=== PATIENT | female | born 1995 | race African-American/Black ===

== ENCOUNTER 2023-04-13 20:55 | Outpatient (CLI) | payer OTHER, SELFPAY ==
--- NOTE | 2023-04-13 21:23 | PC.NURSE ---
pt presents to L&D with complaints of a high blood pressure at home. pt states her pressure at home on an automatic cuff was 188/100. pt denies any history of high blood pressure, pt denies any headache, dizziness, blurred vision, seeing spots, right upper abdominal pain or any other symptoms associated with pre eclampsia. No edema noted on hands, calves, ankles, or feet bilaterally. pt states her mother checked her blood pressure because she felt like she looked extra swollen today . pt denies any vaginal bleeding, leaking of fluid, and has positive movement. pt denies any complications or complaints other than the one high blood pressure check she had at home.
[2023-04-13 21:26] VITALS: BP 104/64; PULSE 93
[2023-04-13 21:38] VITALS: BP 99/62; PULSE 89
== END 2023-04-13 21:40 | disposition home or self-care (01) ==
LOC: ANHOBOP 21:08 → ANHLDR 05-04 06:20
PROVIDERS: PCP Obstetrics & Gynecology; Visit Provider Obstetrics & Gynecology
DX: O13.9 Gestational [pregnancy-induced] hypertension without significant proteinuria, unspecified trimester (principal); Z3A.00 Weeks of gestation of pregnancy not specified
CPT/HCPCS: 59025; 99199

== ENCOUNTER 2023-05-10 18:46 | Inpatient (IN) | payer OTHER, SELFPAY ==
[2023-05-10] VITALS (55 sets, daily range): BP systolic 48–193; BP diastolic 31–150; PULSE 73–295; TEMP 36.3; O2SAT 99–100; BMI 31.3
--- NOTE | 2023-05-10 18:46 | LDADM ---
This patient, Ariane Graham, was admitted to Labor/Delivery/Recovery 104 on 05/10/23 at 18:46. Plans for labor, pain management and were discussed with patient. Patient/family oriented to hospital policies and general routines including ID bracelet, bed and alarms, visiting hours, pain management, procedures, bathroom and other care routines, personal items, smoking policy, room service/diet and guest tray routines, security routines, and visiting hours. Patient/Family are encouraged to report perceived risks to care and to ask questions if they do not understand what they are told or what they should do. See OBIX for further documentation.
--- NOTE | 2023-05-10 19:15 | P.PNAN_ITS ---
Anes - Eval Pre Procedure Procedure: labor epidural Date/Time: 05/10/23 19:15 Surgeon: melly Preop Diagnosis: pain during labor Pre Op Diagnosis: Contractions Patient Data Age: 27 Gender: F Height: Weight: Patient hx anesthesia problems: none Family hx anesthesia problems: none Results Review: All pre-operative results and documents have been reviewed as part of the pre- operative evaluation. Exam Day of Procedure 05/10/23 19:15
[2023-05-10] MEDS: LACTATED RINGERS 1,000 ML 125 ML IV CONT (19:20)
[2023-05-10] MEDS: ONDANSETRON INJ 4 MG/2 ML VIAL IV PUSH (19:28)
[2023-05-10] MEDS: AMPICILLIN 2 GM/NS 100 ML 2 GM/100 ML BAG IVPB (19:29)
[2023-05-10 19:33] LABS: Basophils Percent Auto 0.2 % (0.2-1.2); Eosinophils Absolute Auto 0.1 K/mm3 (0-0.3); Eosinophils Percent Auto 1.1 % (0-4.4); Hemoglobin 13.8 g/dL (12.0-15.0); Immature Granulocyte Absolute 0.06 K/mm3 (0.00-0.031); Immature Granulocyte Percent A 0.5 % (0-0.5); Lymphocytes Absolute Auto 1.98 K/mm3 (0.9-3.2); Lymphocytes Percent Auto 17.3 % (18.3-44.2); Mean Corpuscular HGB Conc 32.1 g/dl (32-36); Mean Corpuscular Hemoglobin 26.1 pg (26-34); Mean Corpuscular Volume 81.4 fl (80-100); Mean Platelet Volume 9.8 fl (7.4-10.4); Monocytes Absolute Auto 0.9 K/mm3 (0.1-0.6); Monocytes Percent Auto 7.8 % (2.6-8.5); Neutrophils Absolute Auto 8.3 K/mm3 (1.3-6.7); Neutrophils Percent Auto 73.1 % (45.5-73.1); Platelet Count Result 264 k/mm3 (150-375); Red Blood Count 5.28 M/mm3 (4.2-5.4); Red Cell Distribution Width 24.6 % (11.5-14.5); White Blood Count 11.4 K/mm3 (4.5-10.0)
--- NOTE | 2023-05-10 19:55 | WPDOBADMIT ---
Obstetrics - Admit Note Admission Note: record reviewed. No pertinent additions to the history and/or any subsequent changes in the physical findings that are not consistent with the expected course of the were found. pt arrived in labor, SROM this am, GBS +, anticipate vaginal delivery Additions to the history and/or subsequent changes in the physical findings follow. None.
[2023-05-10 20:05] LABS: Platelet Estimate Adequate (Adequate); Schistocytes None Seen (NORMAL)
[2023-05-10 20:06] LABS: Anisocytosis 3+ (NORMAL); Hypochromasia 1+ (NORMAL)
[2023-05-10 20:22] LABS: Hepatitis B Surface Antigen Negative (Negative); Rubella IgG Antibody 47.3 IU/ML
[2023-05-10 20:30] LABS: HIV 1/2 Ab P24 Ag Result Negative (Negative)
[2023-05-10] MEDS: OXYTOCIN 30 UNITS/NS 500 ML 30 UNITS/500 ML BAG 999 UNITS IV CONT (21:52)
--- NOTE | 2023-05-10 21:58 | P.PCNOB_ITS ---
OB - Delivery Note Procedure Delivery date: 05/10/23 Procedure: Induction method: None Delivery augmentation: Rupture of Membranes (forebag) Delivery monitor: External FHT and External Uterine Route of delivery: Episiotomy description: None Laceration Description: None Specimen: Yes Quantitative Blood Loss (ml): 100 Anesthesia type: Epidural [place] Baby Date of : 05/10/23 Time of : 21:49 Weeks of gestation at delivery: 39 gender: Female presentation: vertex position: Left Occiput Anterior Placenta delivery description: Spontaneous Cord Vessel Description: 3 Vessels, Clamped/Cut and Delayed Cord Clamping score one minute: 9 score five minutes: 9 Narrative: mother and baby skin to skin in stable condition
[2023-05-10] MEDS: OXYTOCIN 30 UNITS/NS 500 ML 30 UNITS/500 ML BAG 125 UNITS IV CONT (22:25)
[2023-05-11 01:16] VITALS: BP 120/79; PULSE 76; RESP 18; TEMP 36.6; O2SAT 99
[2023-05-11 05:00] VITALS: BP 108/71; PULSE 78; RESP 18; TEMP 37; O2SAT 100
--- NOTE | 2023-05-11 05:00 | PC.NURSE ---
Breast pump provided due to mother had a low milk supply with the first and she is concerned about supply this time, she is also using a nipple shield. Instructions given on cleaning, care, usage, that there should be no pain, pumping schedule for milk production, collection, and storage of human milk. Parents are encouraged to record pumping schedule on the [feeding sheet/pumping log]. Patient was assessed for correct placement, flange size, to pump for comfort and nipple stretching/stimulation for adequate milk production every 3 hours (8 times in 24 hours) 1-2 times at night. Mother voiced understanding of the education shared along with mom and baby guide for additional resource information.
[2023-05-11 05:18] LABS: Hematocrit 36.9 % (37.0-47.0); Hemoglobin 11.8 g/dL (12.0-15.0)
[2023-05-11] MEDS: DOCUSATE SODIUM 100 MG CAPSULE PO (07:08)
[2023-05-11] MEDS: MULTIVIT/MIN/PREN/FOL AC/IRON TABLET 1 TAB PO (07:08)
--- NOTE | 2023-05-11 07:54 | PM.OBPNVD ---
OB - PN: Subj Subjective Date/time seen: 05/11/23 07:54 Patient comments: no complaints, pain well controlled, incisional pain, tolerating diet and flatus present OB - PN: Obj Data Labs 05/11/23 04:54 Labs: Laboratory Results - last 24 hr 05/10/23 05/11/23 19:16 04:54 WBC 11.4 H RBC 5.28 Hgb 13.8 11.8 L Hct 43.0 36.9 L MCV 81.4 MCH 26.1 MCHC 32.1 RDW 24.6 H Plt Count 264 MPV 9.8 Immature Gran % (Auto) 0.5 Neut % (Auto) 73.1 Lymph % (Auto) 17.3 L [place] % (Auto) 7.8 Eos % (Auto) 1.1 Baso % (Auto) 0.2 Lymph # (Auto) 1.98 [place] # (Auto) 0.9 H Eos # (Auto) 0.1 Baso # (Auto) 0.0 Abs Immat Gran (auto) 0.06 H Absolute Neuts (auto) 8.3 H Absolute Nucleated RBC 0.0 Nucleated RBC % 0.0 Platelet Estimate Adequate Hypochromasia 1+ Anisocytosis 3+ Schistocytes None seen Hep Bs Antigen Negative HIV 1&2 Ab/P24 Ag 4thGn Negative Rubella IgG Antibody 47.3 Blood Type O Positive Antibody Screen Negative OB - PN A/P Plan day: 1 Plan: routine care Comments: No problems, routine care Time Spent With Patient Time: Total time spent is greater than 50% in coordination of care (as documented) at patient's floor/unit and/or counseling patient: Exam Const: General: comfortable, no acute distress and alert Resp: Effort & Inspection: normal respiratory effort Auscultation: no crackles, no rales and no rhonchi Cardio: Rate: regular rate Heart sounds: no click, no murmurs and no rubs GI: Inspection: non-distended GI Palp: No Tenderness to palpation present (GI) Auscultation: normal bowel sounds Other: Incision - CDI Extrem: General: normal to inspection, no pedal edema and no calf tenderness
[2023-05-11 08:05] VITALS: BP 105/81; PULSE 75; RESP 16; TEMP 37.4; O2SAT 100
--- NOTE | 2023-05-11 10:50 | PC.NURSE ---
[id number] Introductions were made and father of baby is formula bottle feeding the infant. Mother led the conversation with her Primary RN Brianda concerning the?plans to feed?her attempting to breastfeed, pumping (related to inverted nipples and ineffective ), nipple shield use, supplementation based on her first child experience of guzzling the first bottle and the?experience so far. RN assisted father of baby with burping techniques. Resources provided for inpatient and outpatient services with name written on the white board. Mother voiced understanding of information and will call if there is a request for assistance. Primary RN Brinada (orientation) present.
[2023-05-11 12:02] VITALS: BP 114/72; PULSE 82; RESP 16; TEMP 37.2; O2SAT 99
[2023-05-11] MEDS: IBUPROFEN 600 MG TABLET PO ×2 (12:08→19:25)
--- NOTE | 2023-05-11 12:44 | WPDANLDPN2 ---
Anes-Prog Note L&D Date/Time: 05/11/23 12:44 Comfortable throughout: labor and delivery Neuraxial method: epidural Epidural/Spinal procedure site: clean & non-tender Neuro status: Neuro function grossly intact. Cardiovascular status: normal Respiratory status: normal Airway patency: baseline Mental status: baseline Post-Op hydration status: normal Vital Signs: Last Vital Signs Temp 99 F 05/11/23 12:02 Pulse 82 05/11/23 12:02 Resp 16 05/11/23 12:02 BP 114/72 05/11/23 12:02 Pulse Ox 99 05/11/23 12:02 O2 Del Method Room Air 05/11/23 05:00 Pain score (VAS): 0 I/O: Intake & Output 05/10/23 05/11/23 05/11/23 23:59 07:59 15:59 Intake Total 600 250 Output Total 100 110 Balance 500 140 Post-procedural complaints: none Patient feedback: Patient satisfied with anesthetic care.
[2023-05-11 15:40] LABS: Rapid Plasma Reagin Non-Reactive (NonReactive)
[2023-05-11 19:30] VITALS: BP 114/79; PULSE 72; RESP 16; TEMP 36.7; O2SAT 99
--- NOTE | 2023-05-12 07:13 | PM.OBPNVD ---
OB - PN: Subj Subjective Date/time seen: 05/12/23 07:13 pp day 2 doing well no complaints discharge home today OB - PN: Obj Data Labs 05/11/23 04:54 Labs: Laboratory Results - last 24 hr 05/10/23 19:16 RPR Non-reactive OB - PN A/P Plan day: 2 Plan: routine care and discharge home Time Spent With Patient Time: Total time spent is greater than 50% in coordination of care (as documented) at patient's floor/unit and/or counseling patient: Review of Systems Review of Systems: All systems reviewed & are unremarkable except as noted in HPI and below Exam Const: General: cooperative, healthy appearing and comfortable Chest: Chest palpation & inspection: normal inspection of the chest Resp: Effort & Inspection: normal respiratory effort Cardio: Rate: regular rate Rhythm: regular rhythm GI: Other: soft Skin: General skin exam: normal color Neuro: General: patient oriented x3 Extrem: Right lower extremity: normal to inspection Left lower extremity: normal to inspection Psych: Appearance: grossly normal
--- NOTE | 2023-05-12 07:16 | PM.OBDSVD ---
DS: Admitting Diagnosis Discharge Date 05/12/23 Admitting Diagnosis SROM DS: Discharge Diagnosis Discharge Diagnosis (1) Vaginal delivery: Code(s): O80 - Encounter for full-term uncomplicated delivery Status: Acute OB - DS: Summary OB Procedures : None OB Procedures Intrapartum: Spontaneous Vag Delivery OB Procedures: : None Time Spent with Patient Time attestation: Total time spent providing and/or coordinating discharge services: DS: Data Data Completed and Pending Pending studies at discharge: Pending at discharge 05/10/23 21:54 Surgical [PTH] Routine Labs on day of discharge: Labs from last 24 hours 05/10/23 19:16 RPR Non-reactive Discharge Plan Discharge Attending physician on discharge: Ced Prieto Discharging Clinician: Tangela Garrett Patient Disposition: Home, Self-Care Activity: pelvic rest Diet: regular Patient Instructions: Antibiotic Form Stand Alone Forms: General Discharge Information Follow-up/Referrals: Tangela Garrett, CNM [Certified Nurse Bread Jockey] - 4 Weeks Discharge Medications: New ibuprofen 600 mg Tablet 600 mg PO Q6H PRN (Reason: Cramping) Qty: 30 0RF Continued albuterol sulfate [Ventolin HFA] 90 mcg/actuation HFA aerosol inhaler INHALATION Date of admission: 05/10/23 18:46 Primary Care Provider: PHYSICIAN,SMALL APPLIANCE ASSEMBLY SUPERVISOR Admitting Provider: Ced Prieto Attending physician on admission: Ced Prieto Condition: Stable
[2023-05-12 07:32] VITALS: BP 112/81; PULSE 72; RESP 12; TEMP 36.7; O2SAT 100
--- NOTE | 2023-05-12 08:00 | PC.NURSE ---
PT introductions made and plan of care discussed per post , pain management, daily care activities, breast/bottle/pumping feeding, and pending discharge to home. PT and spouse both recipients of such instructions and no barriers to learning identified at this time. PT received such instructions per one to one discussion, mom baby care guide, and demonstrations this shift. PT verbalized understanding of such care.
[2023-05-12] MEDS: ACETAMINOPHEN 325 MG TABLET 650 MG PO (08:03)
[2023-05-12] MEDS: MULTIVIT/MIN/PREN/FOL AC/IRON TABLET 1 TAB PO (08:05)
[2023-05-12] MEDS: DOCUSATE SODIUM 100 MG CAPSULE PO (08:05)
[2023-05-12] MEDS: IBUPROFEN 600 MG TABLET PO (08:05)
--- NOTE | 2023-05-12 10:13 | PC.NURSE ---
On 05/12/23, the student, Yuki Caballero, provided care and completed [facility] documentation on this patient. I have reviewed the student's documentation and agree with the findings.
--- NOTE | 2023-05-12 11:00 | PC.NURSE ---
Patient to view the discharge video Mother & Baby Care, The First Two Weeks at home on line. Patient was given the opportunity and encouraged to ask questions. Patient verbalized understanding of discharge nformation shared and has been given the mother/baby guide for home reference.
--- NOTE | 2023-05-12 11:35 | PC.NURSE ---
PT discharged to home ambulatory accompanied by spouse , infant, family and walked to waiting car. follow up appts confirmed
[2023-05-13 08:32] VITALS: BP 110/81; PULSE 80; RESP 18; TEMP 36.6; O2SAT 99
== END 2023-05-12 11:35 | disposition home or self-care (01) | DRG 560 ==
LOC: ANHLDR 19:09 → ANHOB2 05-11 01:20
PROVIDERS: Admitting Provider Obstetrics & Gynecology; Referring Provider Advanced Practice Midwife; Visit Provider Obstetrics & Gynecology
DX: O99.824 Streptococcus B carrier state complicating childbirth (principal); Z37.0 Single live birth; Z3A.39 39 weeks gestation of pregnancy
CPT/HCPCS: 36415; 85014; 85018; 85025; 86592; 86703; 86762; 86850; 86900; 86901; 87340; 88307; A9270; G0432; J0290; J2405; J2590; J7120

== ENCOUNTER → 2025-03-30 09:45 | Outpatient (CLI) | payer OTHER, SELFPAY ==
--- NOTE | ~2025-03-30 | XR_ITS ---
XR knee LT min 4V 03/30/2025 09:59 INDICATION: Left knee pain PROCEDURE: 4 views left knee COMPARISON: No prior studies for comparison. FINDINGS: Fracture, dislocation or subluxation is not identified. The soft tissues appear within normal limits. No foreign bodies are identified. IMPRESSION: 1: NO ACUTE BONE OR JOINT ABNORMALITY IDENTIFIED. Reviewed, dictated and finalized at location O.
== END ==
PROVIDERS: PCP Nurse Practitioner Family; Visit Provider Nurse Practitioner Family
DX: M25.562 Pain in left knee (principal); M25.50 Pain in unspecified joint; E61.1 Iron deficiency; R53.83 Other fatigue
CPT/HCPCS: 73564